=== PATIENT | male | born 1955 | race Caucasian/White ===

== ENCOUNTER 2022-05-02 12:04 | Emergency (ER) | payer MEDICARE, SELFPAY ==
[2022-05-02] VITALS (8 sets, daily range): BP systolic 150–153; BP diastolic 87–97; PULSE 87; RESP 13; O2SAT 91–99; BMI 25.0
--- NOTE | 2022-05-02 12:45 | CTR_ITS ---
PROCEDURE INFORMATION: Exam: CT Abdomen And Pelvis Without Contrast Exam date and time: 05/02/2022 1:09 PM Age: 66 years old Clinical indication: Nausea and vomiting; Patient HX: Persistent n/v x 3 days; Additional info: Recurrent emesis-eval for sbo TECHNIQUE: Imaging protocol: Computed tomography of the abdomen and pelvis without contrast. Radiation optimization: All CT scans at this facility use at least one of these dose optimization techniques: automated exposure control; mA and/or kV adjustment per patient size (includes targeted exams where dose is matched to clinical indication); or iterative reconstruction. COMPARISON: No relevant prior studies available. RADIATION DOSE METRICS: Total DLP (mGy-cm): 389.92 FINDINGS: Mediastinal space: There is mucosal thickening of the distal esophagus. Liver: There are well-circumscribed low-density lesions in the liver the larger of which measures 13 mm in the left hepatic lobe. These have benign features and follow-up is not necessary. Gallbladder and bile ducts: Normal. No calcified stones. No ductal dilation. Pancreas: Normal. No ductal dilation. Spleen: Normal. No splenomegaly. Adrenal glands: Normal. No mass. Kidneys and ureters: There is a 2.7 cm cyst with benign features in the left kidney. Stomach and bowel: Unremarkable. No obstruction. No mucosal thickening. Appendix: No evidence of appendicitis. Intraperitoneal space: Unremarkable. No free air. No significant fluid collection. Vasculature: Unremarkable. No abdominal aortic aneurysm. Lymph nodes: Unremarkable. No enlarged lymph nodes. Urinary bladder: See Reproductive finding. Reproductive: Prostate gland indents the base of the bladder consistent with median lobe enlargement. Bones/joints: Unremarkable. No acute fracture. Soft tissues: Unremarkable. CT/CT abdomen pelvis wo con [id number] IMPRESSION: 1. Prostate gland indents the base of the bladder consistent with median lobe enlargement. 2. Mucosal thickening of the distal esophagus nonspecific esophagitis. Follow-up to neoplasm as warranted. COMMENTS: Consistent with the [employer]'s Incidental Findings Committee white paper (J Am Colin Radiol 2018): Any incidental renal lesion less than 1 cm or classified as too small to characterize, or any incidental cystic renal lesion characterized as simple-appearing, is likely benign. No follow-up imaging is recommended for these lesions per consensus recommendations based on imaging criteria.
--- NOTE | 2022-05-02 12:47 | W.ED.ABDPA2 ---
HPI - Abdominal Pain General: Chief Complaint: Abdominal Pain Stated Complaint: Abd Pain, N/V Time Seen by Provider: 05/02/22 12:26 Source: patient and family Mode of arrival: ambulatory Limitations: no limitations History of Present Illness: This patient presents to our emergency department by private vehicle accompanied by his spouse. He is here because he has had persistent nausea and vomiting since . He states the symptoms are just like those he is experienced multiple times in the past. Symptoms began as previous symptoms did in the past. He states that they do not seem to be is associated with any particular food or diet. He states he is made minimal alterations in his diet in the past without any improvement in symptoms. He denies any known exposure to infectious disease, recent travel, bad food exposure. No one else at home is similarly affected. He states he does get crampy and sweaty when he has episodes of emesis. He denies any blood in his emesis. He states he is able to drink some fluids but is unable to eat solid food since the onset. He states he has had significantly diminished volume of stool since the onset of symptoms. He has not recently taken antibiotics and any antibiotics. He denies any chest pain shortness of breath or other constitutional symptoms such as fever etc. He states he previously had seen a on site construction superintendent when he lived up [place] and had multiple colonoscopies. He states he has not been told he had Crohn's disease or inflammatory bowel disease but he has heard the word irritable bowel syndrome in the past. He is also apparently been empirically treated for diverticulitis but not recently. He denies alcohol use. He states he used to drink alcohol regularly but for the past many years he does drinks maybe 1 alcoholic drink a year. He has not had any abdominal surgeries. He does relate that he does have a medical marijuana card and is been a pot head since he was age 14. He does admit to using marijuana on a heavily on a daily basis. He did use his antiemetic suppository previously today. Pain Consistency: intermittent Location: Epigastric Quality: cramping and fullness Relieving factors: nothing Associated Symptoms: Reports GI cramping, nausea and vomiting; Denies chills, constipation, diarrhea, dysuria, excessive flatus, fever(s), hematochezia, hematemesis, melena and syncope Review of Systems Const: Denies: fever(s), chills or body aches Eyes: Denies: change in vision ENMT: Denies: throat pain, odynophagia or nasal congestion Card: Denies: chest pain, palpitations, irregular heart rhythm, edema or syncope Resp: Denies: dyspnea, productive cough or non-productive cough GI: Reports: nausea, vomiting and GI cramping; Denies: hematemesis, diarrhea, constipation, excessive flatus, hematochezia, melena, mucus in stool or white/light colored stool : Denies: flank pain, difficulty urinating or dysuria Musc: Denies: neck pain, back pain, extremity pain or extremity swelling Skin/Breast: Denies: rash or pruritus Neuro: Denies: headache(s), numbness in extremities, weakness in extremities, vertigo or confusion Psych: Denies: suicidal ideation or homicidal ideation Endo: Denies: polyuria, polydipsia or tired all the time Walter/Lymph: Denies: easy bruising or easy bleeding Physical Exam Narrative: EXAM NARRATIVE: Patient makes good eye, goal-directed conversation. Appears to be in no acute distress initially. Const: COMMON NORMALS: no acute distress, average body habitus and patient oriented x3 GENERAL APPEARANCE: cooperative, comfortable and well kempt HENMT: COMMON NORMALS: normocephalic, Normal nasal mucous membranes and turbinates present, moist oral mucous membranes and oropharynx normal HEAD & SCALP: normocephalic FACE & SINUS: normal facial exam NOSE: Normal nasal mucous membranes and turbinates present Eye: COMMON NORMALS: Equal, round and reactive pupils present, EOMs intact bilaterally, conjunctivae normal and no scleral icterus CONJUNCTIVA: Yes conjunctivae normal PUPIL: Yes Equal, round and reactive pupils present Neck/C-Spine: COMMON NORMALS: full ROM, no lymphadenopathy, no JVD and Thyroid normal THYROID: Thyroid normal Lymph: LYMPHATIC: no lymphadenopathy noted Chest: COMMONS NORMALS: normal inspection of the chest and normal palpation of entire chest wall Resp: COMMON NORMALS: normal respiratory effort, No retractions, No use of accessory muscles and clear to auscultation bilaterally AUSCULTATION: clear to auscultation bilaterally Cardio: COMMON NORMALS: no JVD, regular rate, regular rhythm, No murmurs present (Cardio) and Peripheral pulses 2+ throughout RATE: regular rate RHYTHM: regular rhythm PERIPHERAL PULSES: Peripheral pulses 2+ throughout GI: COMMON NORMALS: No hepatosplenomegaly present, no masses and no bruits PALPATION: Yes No hepatosplenomegaly present OTHER: Examination and examined. No peritoneal signs or rebound noted at this time. No abdominal masses by palpation. No surgical scars. And tenses his abdominal muscles : COMMON NORMALS: Yes no CVA tenderness BLADDER/KIDNEY EXAM: Yes no CVA tenderness Back/Pelvis: COMMON NORMALS: no CVA tenderness, thoracic and lumbar spine normal to inspection, no thoracic nor lumbar tenderness, thoraco-lumbar ROM normal and straight leg raise negative bilaterally Extremity: COMMON NORMALS: normal to inspection, full ROM, capillary refill normal, no calf tenderness and no pedal edema Neuro: COMMON NORMALS: patient oriented x3, moves all extremities, no focal motor deficits, no sensory deficits noted and gait normal SPEECH: speech normal Psych: COMMON NORMALS: mental status grossly normal and Normal thought process present APPEARANCE: Yes well kempt THOUGHT PROCESS: Normal thought process present Skin: COMMON NORMALS: no rashes or lesions noted, turgor normal and no jaundice GENERAL SKIN EXAM: no rashes or lesions noted and turgor normal Course Reevaluation(s): Reevaluation #1: Patient was reevaluated. He states he feels markedly better has not vomited since being medicated and receiving his IV fluids. His potassium was repleted as well. CT scan head other findings are reassuring other than his hypokalemia which again was repleted in the emergency department. He did not display any arrhythmias or other concerning findings on his monitor. 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 No evidence of a surgical abdomen etc. at this time. I discussed current findings, need to reduce his cannabis intake, close follow-up. He voiced understanding. Stable for discharge. Time: 15:50 Vital Signs: Vital signs: Vital Signs Pulse Rate 87 05/02/22 12:14 Respiratory Rate 13 05/02/22 12:14 Blood Pressure 150/87 05/02/22 15:00 Pulse Oximetry 99 05/02/22 15:00 Oxygen Delivery Me thod 05/02/22 12:14 MDM - Abdominal Pain Medical Decision Making Patient with a history of recurrent episodes of vomiting. Never seen in this emergency department therefore no imaging or other studies available. 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 This syndrome was reviewed with the patient as well as spouse and he was encouraged to reduce his cannabis intake. His potassium was repleted in the emergency department. We will provide him a H2 alvino to take for the next 2 weeks to treat his esophagitis which is likely related to his repetitive vomiting. Stable at this time for discharge. Lab Data I reviewed the patient's lab results. : 05/02/22 13:10 05/02/22 13:46 Labs/Radiology: Radiology Impressions Abdomen/Pelvis CT 05/02/22 12:45 IMPRESSION: 1. Prostate gland indents the base of the bladder consistent with median lobe enlargement. 2. Mucosal thickening of the distal esophagus nonspecific esophagitis. Follow-up to neoplasm as warranted. COMMENTS: Consistent with the [place] [employer]'s Incidental Findings Committee white paper (J Am Colin Radiol 2018): Any incidental renal lesion less than 1 cm or classified as too small to characterize, or any incidental cystic renal lesion characterized as simple-appearing, is likely benign. No follow-up imaging is recommended for these lesions per consensus recommendations based on imaging criteria. Laboratory Results WBC 12.8 10^3/uL (4.0-10.0) H 05/02/22 13:10 RBC 5.52 10^6/uL (4.1-5.3) H 05/02/22 13:10 Hgb 16.4 g/dL (11.7-16.6) 05/02/22 13:10 Hct 47.7 % (42.0-52.0) 05/02/22 13:10 MCV 86.4 fl (80-94) 05/02/22 13:10 MCH 29.7 pg (28.0-34.0) 05/02/22 13:10 MCHC 34.4 g/dL (30.0-36.0) 05/02/22 13:10 RDW 12.5 % (12.1-15.1) 05/02/22 13:10 Plt Count 304 10^3/cmm (130-400) 05/02/22 13:10 MPV 10.1 fL (7.4-10.4) 05/02/22 13:10 Neut % (Auto) 77.6 % 05/02/22 13:10 Lymph % (Auto) 13.8 % 05/02/22 13:10 [place] % (Auto) 8.1 % 05/02/22 13:10 Eos % (Auto) 0.0 % 05/02/22 13:10 Baso % (Auto) 0.2 % 05/02/22 13:10 Neut # (Auto) 9.93 10^3/uL (1.8-7.7) H 05/02/22 13:10 Lymph # (Auto) 1.8 10^3/uL (0.8-4.8) 05/02/22 13:10 [place] # (Auto) 1.0 10^3/uL (0.2-0.9) H 05/02/22 13:10 Eos # (Auto) 0.0 10^3/uL (0.0-0.8) 05/02/22 13:10 Baso # (Auto) 0.0 10^3/uL (0.0-0.1) 05/02/22 13:10 Nucleated RBC % (auto) 0 % 05/02/22 13:10 Nucleated RBCs # 0.0 /100WBC 05/02/22 13:10 Sodium 140 mmol/L (136-145) 05/02/22 13:46 Potassium 3.0 mmol/L (3.5-5.1) L 05/02/22 13:46 Chloride 98 mmol/L (98-107) 05/02/22 13:46 Carbon Dioxide 31 mmol/L (22-29) H 05/02/22 13:46 Anion Gap 14.0 (5-19) 05/02/22 13:46 BUN 41 mg/dL (8-23) H 05/02/22 13:46 Creatinine 0.9 mg/dL (0.7-1.2) 05/02/22 13:46 GFR Calculation 84.7 mL/min (90-130) L 05/02/22 13:46 Glucose 98 mg/dL (65-115) 05/02/22 13:46 Calculated Osmolality 300 mOsm/kg (285-295) H 05/02/22 13:46 Calcium 8.7 mg/dL (8.5-10.5) 05/02/22 13:46 Total Bilirubin 1.2 mg/dL (0.15-1.2) 05/02/22 13:46 AST 16 U/L (0-40) 05/02/22 13:46 ALT 13 U/L (0-41) 05/02/22 13:46 Alkaline Phosphatase 60 IU/L (40-130) 05/02/22 13:46 Total Protein 6.8 g/dL (6.6-8.7) 05/02/22 13:46 Albumin 4.5 g/dL (3.5-5.2) 05/02/22 13:46 Globulin 2.3 g/dL (1.3-4.6) 05/02/22 13:46 Lipase 23 U/L (13-60) 05/02/22 13:46 Discharge Plan Discharge Patient Disposition: Home Clinical Impression: Cyclic vomiting syndrome, Esophagitis, Hypokalemia Condition: Stable Prescriptions: New ondansetron 4 mg tablet,disintegrating 4 mg PO Q8H PRN (Reason: nausea and vomiting) Qty: 14 0RF famotidine [Pepcid] 40 mg tablet 40 mg PO DAILY Qty: 14 0RF Discharge Orders: Discharge ED (Routine); Ordered 05/02/22 Ordered By: Greg Roberts Discharge Diet: Advance as tolerated Discharge Activity: Resume usual activity Patient Instructions: Opioid Safety Activity Restrictions/Additional Instructions: As we discussed we think much of your recurrent vomiting is related to your excess cannabis use. We advised to reduce your cannabis use to a level that does not result in recurrent episodes of vomiting. Should this not be successful or should you develop abdominal pains, fevers or other concerns return to this or the nearest emergency department for reevaluation. 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
--- NOTE | 2022-05-02 13:01 | ECG_ITS ---
[facility] Test Date: 2022-05-02 Pat Name: Feroz Solis Department: Room: Gender: Male Glazier Helper: : [id number] Requested By: Greg Roberts Order Number: [id number] Fidel MD: Brian Aguirre M.D. Measurements Intervals [place] Rate: 76 P: 74 KS: 141 QRS: -14 QRSD: 94 T: 66 QT: 379 QTc: 428 Interpretive Statements SINUS RHYTHM LEFT ATRIAL ENLARGEMENT [-0.15mV P WAVE IN V1/V2] INDETERMINATE AXIS MODERATE ST DEPRESSION [0.05+ mV ST DEPRESSION] INTERPRETATION BASED ON A DEFAULT AGE OF 40 YEARS No previous ECG available for comparison Electronically Signed On 05-03-2022 9:28:21 CDT by Brian Aguirre M.D. [id number]
[2022-05-02] MEDS: diphenhydrAMINE 50 mg/mL SDV 1mL 12.5 MG IVP (13:03)
[2022-05-02] MEDS: sodium chloride 0.9% 1,000 ML 999 ML IV (13:04)
[2022-05-02] MEDS: haloperidol inj 5 mg/mL INJ 1 mL IVP (13:04)
[2022-05-02 13:20] LABS: Basophils % 0.2 %; Hematocrit 47.7 % (42.0-52.0); Hemoglobin 16.4 g/dL (11.7-16.6); Lymphocytes # 1.8 10^3/uL (0.8-4.8); Lymphocytes % 13.8 %; Mean Corpuscular HGB Conc 34.4 g/dL (30.0-36.0); Mean Corpuscular Hemoglobin 29.7 pg (28.0-34.0); Mean Corpuscular Volume 86.4 fl (80-94); Mean Platelet Volume 10.1 fL (7.4-10.4); Monocytes % 8.1 %; Neutrophils # 9.93 10^3/uL (1.8-7.7); Neutrophils % 77.6 %; Nucleated Red Blood Cells % 0 %; Platelet Count 304 10^3/cmm (130-400); Red Blood Count 5.52 10^6/uL (4.1-5.3); Red Cell Distribution Width 12.5 % (12.1-15.1); White Blood Count 12.8 10^3/uL (4.0-10.0)
[2022-05-02 14:16] LABS: Alanine Aminotransferase 13 U/L (0-41); Albumin Level 4.5 g/dL (3.5-5.2); Alkaline Phosphatase 60 IU/L (40-130); Aspartate Amino Transferase 16 U/L (0-40); Blood Urea Nitrogen 41 mg/dL (8-23); Calcium 8.7 mg/dL (8.5-10.5); Carbon Dioxide 31 mmol/L (22-29); Chloride 98 mmol/L (98-107); Globulin 2.3 g/dL (1.3-4.6); Glomerular Filtration Rate 84.7 mL/min (90-130); Glucose 98 mg/dL (65-115); Lipase 23 U/L (13-60); Osmolality Calculated 300 mOsm/kg (285-295); Sodium 140 mmol/L (136-145); Total Bilirubin 1.2 mg/dL (0.15-1.2); Total Protein 6.8 g/dL (6.6-8.7)
[2022-05-02] MEDS: famotidine 20 mg/2 mL INJ 40 MG IVP (14:51)
[2022-05-02] MEDS: potassium bicarb 25 mEq Tablet 50 MEQ PO (14:51)
== END 2022-05-02 16:11 | disposition home or self-care (01) ==
PROVIDERS: Emergency Provider Emergency Medicine
DX: K20.90 Esophagitis, unspecified without bleeding (principal); R11.15 Cyclical vomiting syndrome unrelated to migraine; E87.6 Hypokalemia
CPT/HCPCS: 36415; 74176; 80053; 83690; 85025; 93005; 96361; 96374; 96375; 99285; J1200; J1630; J3490; J7030

== ENCOUNTER 2023-03-08 08:22 | Outpatient (CLI) | payer MEDICARE, SELFPAY ==
--- NOTE | 2023-03-08 08:31 | CT_ITS ---
WS: [id number] CT ABDOMEN AND PELVIS NONCONTRAST HISTORY: LEUKOCYTOSIS, ABDOMINAL PAIN TECHNIQUE: Imaging performed through the abdomen and pelvis. Coronal and sagittal reformats are submi tted. All CT scans at [facility] use at least one of these dose optimization techniques: auto mated exposure control; mA and/or kV adjustment per patient size (includes targeted exams where dose is matched to clinical indication); or iterative reconstruction. DLP: 283.56 mGy.cm COMPARISON: 05/02/2022 Lower thorax: Lung bases are clear. Visualized heart is normal. Small hiatal hernia. Liver: Normal size liver. There are several scattered hypoechoic masses throughout the liver which we re also present on the prior study. These are probably cysts and benign in appearance. No bile duct d ilatation. Gallbladder: Normal gallbladder. No pericholecystic fluid or cholelithiasis. No gallbladder wall thic kening. Pancreas: Normal size and attenuation. Normal pancreatic duct. No pancreatitis or mass. Spleen: Normal. Adrenal glands: Normal. No mass. Right kidney: Normal size kidney with no mass or hydronephrosis. Moderate perinephric stranding with no obstruction. Left kidney: Normal size kidney. Low-attenuation well-circumscribed 2.1 cm mass mid lateral kidney si milar to the prior study probably representing a cyst. Hounsfield units are low. Moderate perinephric stranding. Aorta: Mild atherosclerosis abdominal aorta with no aneurysm. No free fluid, intraperitoneal air or significant lymphadenopathy. GI tract: Well-distended stomach and small bowel. Increased fluid within the duodenal C-loop. No oral contrast versus provided for this examination therefore evaluation of the GI tract is limited. Numer ous scattered diverticula in the sigmoid colon without acute diverticulitis. Negative appendix. Diffu se constipation, greatest in the distal colon. Abdominal wall: Negative. No hernia. Pelvis: Well-distended urinary bladder. Mild prostate enlargement. No free fluid. Osseous structures: Advanced degenerative changes throughout the lumbar spine. Disc spaces are narrow ed at and asymmetric. Degenerative mild scoliosis. CT/CT abdomen pelvis wo con [id number] IMPRESSION: 1. Mild diffuse constipation, greatest towards the rectum. 2. Extensive diverticular disease with narrowing of the sigmoid lumen. No evid ence for acute diverticulitis. 3. Moderate bilateral perinephric stranding. Similar to the study of 05/02/2022 . May be chronic. Pyelonephritis may appear similar. 4. Stable low-attenuation LEFT renal mass is probably a renal cyst. 5. Lack of IV and oral contrast limits evaluation of the GI tract.
== END 2023-03-08 08:23 | disposition home or self-care (01) ==
PROVIDERS: PCP Nurse Practitioner Family; Visit Provider Nurse Practitioner Family
DX: D72.829 Elevated white blood cell count, unspecified (principal); R11.2 Nausea with vomiting, unspecified; R10.9 Unspecified abdominal pain; K59.09 Other constipation; K57.30 Diverticulosis of large intestine without perforation or abscess without bleeding; N28.89 Other specified disorders of kidney and ureter
CPT/HCPCS: 74176